=== PATIENT | male | born 1980 | race Caucasian/White ===

== ENCOUNTER 2020-04-24 03:50 | Emergency (ER) | payer OTHER ==
[~2020-04-24] VITALS: Ht 182.9 cm; Wt 99.8 kg
[~2020-04-24 03:50] MED LIST: FLEXERIL PO; HYDROCODONE-APA1 TA1 PO
[2020-04-24 05:05] LABS: AMP/METHAMP POSITIVE (Negative); BARBITURATES Negative (Negative); BENZODIAZEPINES Negative (Negative); COCAINE Negative (Negative); METHADONE Negative (Negative); OPIATES Negative (Negative); PCP Negative (Negative); THC POSITIVE (Negative)
[2020-04-24 05:48] VITALS: BP 140/70
== END 2020-04-24 05:48 | disposition home or self-care (01) ==
LOC: M.ERS 03:50
PROVIDERS: Emergency Medicine
DX: R11.2 Nausea with vomiting, unspecified (principal); F17.210 Nicotine dependence, cigarettes, uncomplicated; Z88.5 Allergy status to narcotic agent; Z79.899 Other long term (current) drug therapy